=== PATIENT | female | born 1970 | race Caucasian/White ===

== ENCOUNTER → 2020-07-20 | Outpatient (CLI) | payer OTHER ==
[~2020-07-20] MED LIST: AMBIEN5 MG PO; AZITHROMYCIN500 MG PO; BENTYL 20MG TAB20 MG PO; BREXPIPRAZOLE 1 MG PO; BUSPIRONE HCL15 MG PO; CEFUROXIME500 MG PO; CHANTIX1 MG PO; COMBIVENT0.074 GM/I INH; CORTIZONE-1057 GM TP; DETROL LA4 MG PO; DICLOFENAC SODI75 MG PO; EFFEXOR XR150 MG PO; FLOMAX 0.4 MG0.4 MG PO; FLOMAX0.4 MG PO; FLONASE 0.05% N16 GM; HYDROCHLOROTHIA25 MG PO; HYDROXYZINE PAM25 MG PO; IBUPROFEN600 MG PO; LISINOPRIL-HCT1 EACH PO; LORATADINE10 MG PO; LORTAB 5-325 M1 EACH PO; MACROBID 100 M100 MG PO; METHOCARBAMOL750 MG PO; METROCREAM45 GM TP; MULTI COMPLETE1 EACH PO; NAPROXEN 250 M250 MG PO; NORCO 5-325 TA1 EACH PO; NORCO 7.5-3251 EACH PO; OMNICEF 300 MG300 MG PO; PERCOCET 5-3251 EACH PO; PREDNISONE20 MG PO; RANITIDINE HCL150 MG PO; ROBAXIN 750 MG750 MG PO; TEMOVATE60 GM TP; TIZANIDINE HCL4 MG PO; TRAZODONE HCL100 MG PO; TRIFLUOPERAZINE2 MG PO; VENTOLIN HFA 66.7 GM INH; XIIDRA EYE EYEBOTH; ZITHROMAX500 MG PO; ZOFRAN ODT 4 MG4 MG PO; ZOFRAN ODT 4 MG4 MG SL
== END ==
LOC: CT 14:30
DX: R59.0 Localized enlarged lymph nodes (principal); K76.0 Fatty (change of) liver, not elsewhere classified
CPT/HCPCS: 36415; 74160; 82565; Q9967

== ENCOUNTER → 2021-03-15 | Outpatient (CLI) | payer OTHER | LOC: EXRD 07:55 | DX: R74.8 Abnormal levels of other serum enzymes (principal); K76.0 Fatty (change of) liver, not elsewhere classified | CPT/HCPCS: 76705 ==

== ENCOUNTER 2021-03-30 16:14 | Emergency (ER) | payer OTHER ==
[2021-04-28] MEDS ORDERED: CEFDINIR300 MG PO (22:08)
[2021-04-28] MEDS ORDERED: PREDNISONE 20 M20 MG PO (22:08)
== END 2021-03-30 17:00 | disposition left against medical advice (07) ==
LOC: ER1 16:14
DX: R53.1 Weakness (principal)
CPT/HCPCS: 99281

== ENCOUNTER → 2021-04-14 | Outpatient (CLI) | payer OTHER | LOC: LAB 12:20 | DX: R05 Cough (principal); R91.8 Other nonspecific abnormal finding of lung field | CPT/HCPCS: 36415; 71046; 82565 ==

== ENCOUNTER → 2021-04-20 | Outpatient (CLI) | payer OTHER | LOC: EMI 04-12 14:00 → MRI 04-13 13:00 | DX: R55 Syncope and collapse (principal) | CPT/HCPCS: 70553; A9577 ==

== ENCOUNTER → 2021-04-28 | Emergency (ER) | payer OTHER ==
[~2021-04-28] MED LIST changes: +CEFDINIR300 MG PO; +PREDNISONE 20 M20 MG PO
[2021-04-28 19:26] LABS: HEMOGLOBIN 15.1 gm/dl (12.3-15.3); RED BLOOD COUNT 5.57 M/UL (4.00-5.10); WHITE BLOOD COUNT 9.9 K/UL (4.5-11.0)
[2021-04-28 19:48] LABS: BUN/CREATININE RATIO 18 (0-10)
== END | disposition home or self-care (01) ==
LOC: ER1 17:50
PROVIDERS: Physician Assistant
DX: I95.9 Hypotension, unspecified (principal); J45.901 Unspecified asthma with (acute) exacerbation; N39.0 Urinary tract infection, site not specified; E11.9 Type 2 diabetes mellitus without complications; I10 Essential (primary) hypertension; F17.200 Nicotine dependence, unspecified, uncomplicated; Z90.49 Acquired absence of other specified parts of digestive tract; Z88.5 Allergy status to narcotic agent; Z88.8 Allergy status to other drugs, medicaments and biological substances; Z79.899 Other long term (current) drug therapy
CPT/HCPCS: 71045; 80053; 81001; 82550; 82553; 83874; 84484; 84703; 85025; 93005; 94664; 99284

== ENCOUNTER → 2021-09-05 | Outpatient (CLI) | payer OTHER | LOC: HEART 5 13:54 | DX: M79.661 Pain in right lower leg (principal); M79.662 Pain in left lower leg ==